=== PATIENT | male | born 1950 | race Caucasian/White ===

== ENCOUNTER 2017-11-11 10:30 | Outpatient (RCR) | payer BC ==
[~2017-11-11 10:30] MED LIST: AMOXICILLIN 8751 TAB PO; ASPIRIN E.C. 8181 MG PO; BETAPACEAF120 PO; CLARITIN 1010 MG/TAB PO; COLACE 100100 MG/CAP PO; CORDARONE200 MG/TAB PO; COUMADIN 5MG5 MG/TAB PO; DALIRESP500 MCG PO; FERROUS SU325 MG/TAB PO; GLUCOPHAGE500 MG/TAB PO; LIPITOR20 MG PO; MIRALAX PA17 GM/Dose PO; NORCO 325 MG-7.1 TAB PO; PACERONE200 MG PO; PROAMATINE 5MG T5 MG PO; SENOKOT S 50 MG1 TAB PO; TYLENOL 325MG325 MG PO; VASOTEC 2.2.5 MG/TAB PO; XARELTO20 MG PO
== END 2017-11-11 12:23 | disposition home or self-care (01) ==
LOC: WSPT 10:30
DX: J44.9 Chronic obstructive pulmonary disease, unspecified (principal); I48.0 Paroxysmal atrial fibrillation; R29.898 Other symptoms and signs involving the musculoskeletal system